=== PATIENT | male | born 1960 | race Hispanic/Latino ===

== ENCOUNTER 2016-12-24 07:57 | Emergency (ER) | payer OTHER ==
[~2016-12-24] VITALS: Ht 165.1 cm; Wt 81.8 kg
[2016-12-24 08:01] VITALS: BP 156/99; PULSE 97; RESP 18; O2SAT 100
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
[2016-12-24] MEDS ORDERED: TdaP Vaccine 0.5 mL Inj IM ONE (08:15)
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
[2016-12-24] MEDS ORDERED: HYDR-4003 PO (09:12)
[2016-12-24] MEDS ORDERED: NPR500T PO (09:12)
[2016-12-24 09:40] VITALS: BP 163/97; PULSE 79; RESP 18; O2SAT 97
[2016-12-24 09:45] VITALS: BP 163/97; PULSE 79; RESP 18; O2SAT 97
== END 2016-12-24 09:50 | disposition home or self-care (01) ==
LOC: SED 07:57
DX: S22.31XA Fracture of one rib, right side, initial encounter for closed fracture (principal); W23.1XXA Caught, crushed, jammed, or pinched between stationary objects, initial encounter; Y93.89 Activity, other specified; Y92.89 Other specified places as the place of occurrence of the external cause; Y99.8 Other external cause status; Z23 Encounter for immunization